=== PATIENT | male | born 1960 | race Caucasian/White ===

== ENCOUNTER → 2024-08-22 | Outpatient (CLI) | payer MEDICARE, BC ==
[2024-08-22 16:13] LABS: HGB 7.6 g/dL (13.0-17.0); MCH 20.4 pg (27.0-32.0); MCHC 28.1 g/dL (32.0-37.0); MCV 72.4 FL (80.0-97.0); Mean Platelet Volume 11.1 FL (9.5-12.2); NRBC Per 100 WBC 0 X 10*3/uL (0.00-0.01); Platelet Count 199 X 10*3/uL (140-440); RBC 3.73 X 10*6/uL (4.40-5.60); WBC 5.42 X 10*3/uL (4.50-10.00)
== END | disposition home or self-care (01) ==
LOC: LABWHC1 10:35
PROVIDERS: ATTEND Internal Medicine Interventional Cardiology
DX: R06.00 Dyspnea, unspecified (principal)
CPT/HCPCS: 36415; 80053; 85027

== ENCOUNTER → 2024-09-08 | Outpatient (CLI) | payer MEDICARE, BC ==
[2024-09-08 17:03] LABS: HGB 8.3 g/dL (13.0-17.0); MCH 20.3 pg (27.0-32.0); MCHC 27.7 g/dL (32.0-37.0); MCV 73.5 FL (80.0-97.0); Mean Platelet Volume 10.5 FL (9.5-12.2); NRBC Per 100 WBC 0 X 10*3/uL (0.00-0.01); Platelet Count 238 X 10*3/uL (140-440); RBC 4.08 X 10*6/uL (4.40-5.60); RDW 17.2 % (11.5-14.5); WBC 4.23 X 10*3/uL (4.50-10.00)
== END | disposition home or self-care (01) ==
LOC: LABWHC1 08:31
PROVIDERS: ATTEND Registered Nurse
DX: D50.9 Iron deficiency anemia, unspecified (principal)
CPT/HCPCS: 36415; 85027

== ENCOUNTER → 2024-09-22 | Outpatient (CLI) | payer MEDICARE, BC ==
[2024-09-22 15:59] LABS: HCT 33.2 % (39.6-50.0); HGB 9.5 g/dL (13.0-17.0); MCH 21.9 pg (27.0-32.0); MCHC 28.6 g/dL (32.0-37.0); MCV 76.7 FL (80.0-97.0); Mean Platelet Volume 10.7 FL (9.5-12.2); NRBC Per 100 WBC 0 X 10*3/uL (0.00-0.01); Platelet Count 218 X 10*3/uL (140-440); RBC 4.33 X 10*6/uL (4.40-5.60); RDW 22.8 % (11.5-14.5); WBC 6.29 X 10*3/uL (4.50-10.00)
[2024-09-22 16:19] LABS: % Iron Saturation 73.75 (15.00-50.00)
[2024-09-22 16:25] LABS: Anisocytosis (M) 2+ (None Seen); Basophils # (A) 0.07 X 10*3/uL (0.00-0.10); Basophils % (A) 1.1 %; Elliptocytes 2+ (None Seen); Eosinophils # (A) 0.34 X 10*3/uL (0.04-0.35); Eosinophils % (A) 5.4 %; Lymphocytes # (A) 1.77 X 10*3/uL (0.90-5.00); Lymphocytes % (A) 28.1 %; Microcytosis (M) 2+ (None Seen); Monocytes # (A) 0.57 X 10*3/uL (0.20-1.00); Monocytes % (A) 9.1 %; Neutrophils % (A) 55.7 %
== END | disposition home or self-care (01) ==
LOC: LABWHC1 08:20
PROVIDERS: ATTEND Registered Nurse
DX: D50.9 Iron deficiency anemia, unspecified (principal)
CPT/HCPCS: 36415; 82728; 83540; 83550; 85025